=== PATIENT | female | born 1940 | race African-American/Black ===

== ENCOUNTER 2019-08-18 12:13 | Emergency (ER) | payer MEDICARE ==
[~2019-08-18] VITALS: Ht 165.1 cm; Wt 88.0 kg
[2019-08-18 12:52] LABS: HEMATOCRIT 35.5 % (37.0-47.0); HEMOGLOBIN 10.6 g/dl (12.0-16.0); IMMATURE GRANULOCYTES 0.4 % (0.0-5.0); MEAN CELL VOLUME 94.2 fL CALC (80.0-100.0); MEAN CORPUSCULAR HGB 28.1 pG CALC (26.0-32.0); MEAN CORPUSCULAR HGB CONC 29.9 g/L CALC (32.0-36.0); NEUT# 5.94 thou/uL (2.00-7.15); RED BLOOD COUNT 3.77 mill/uL (4.20-5.60)
[2019-08-18 13:08] LABS: ALBUMIN 3.7 g/dL (3.2-5.0); BILIRUBIN, TOTAL 0.9 mg/dL (0.0-1.4); CREATININE 3.2 mg/dL (0.5-1.0); POTASSIUM 4.5 mmol/l (3.5-5.1); TOTAL PROTEIN 7.6 g/dL (6.3-8.2)
[2019-08-18 15:25] VITALS: BP 147/81
== END 2019-08-18 15:25 ==
LOC: ED 12:13
PROVIDERS: Emergency Medicine
DX: J18.9 Pneumonia, unspecified organism (principal); N18.6 End stage renal disease; I12.0 Hypertensive chronic kidney disease with stage 5 chronic kidney disease or end stage renal disease; E87.70 Fluid overload, unspecified; E11.22 Type 2 diabetes mellitus with diabetic chronic kidney disease; Z99.2 Dependence on renal dialysis; Z91.15 Patient's noncompliance with renal dialysis; R06.02 Shortness of breath

== ENCOUNTER 2019-09-13 | Emergency (ER) | payer MEDICARE ==
[2019-09-13 03:41] LABS: HEMATOCRIT 34.7 % (37.0-47.0); HEMOGLOBIN 10.1 g/dl (12.0-16.0); IMMATURE GRANULOCYTES 0.7 % (0.0-5.0); MEAN CELL VOLUME 97.2 fL CALC (80.0-100.0); MEAN CORPUSCULAR HGB 28.3 pG CALC (26.0-32.0); MEAN CORPUSCULAR HGB CONC 29.1 g/L CALC (32.0-36.0); NEUT# 5.1 thou/uL (2.00-7.15); RED BLOOD COUNT 3.57 mill/uL (4.20-5.60); RED CELL DISTRI WIDTH 16.4 % (11.5-15.5)
[2019-09-13 04:09] LABS: ALBUMIN 3.8 g/dL (3.2-5.0); BILIRUBIN, TOTAL 0.7 mg/dL (0.0-1.4); POTASSIUM 4.4 mmol/l (3.5-5.1); TOTAL PROTEIN 7.5 g/dL (6.3-8.2)
[2019-09-13 04:10] LABS: CREATININE 5.3 mg/dL (0.5-1.0)
== END 2019-09-13 07:25 ==
PROVIDERS: Emergency Medicine
DX: J18.9 Pneumonia, unspecified organism (principal); E87.70 Fluid overload, unspecified; I12.0 Hypertensive chronic kidney disease with stage 5 chronic kidney disease or end stage renal disease; N18.6 End stage renal disease; Z99.2 Dependence on renal dialysis; R06.02 Shortness of breath

== ENCOUNTER 2019-09-21 | Emergency (ER) | payer MEDICARE, MEDICAID ==
[2019-09-21 13:19] LABS: HEMOGLOBIN 8.8 g/dl (12.0-16.0); IMMATURE GRANULOCYTES 2.3 % (0.0-5.0); MEAN CELL VOLUME 91.9 fL CALC (80.0-100.0); MEAN CORPUSCULAR HGB 28.7 pG CALC (26.0-32.0); MEAN CORPUSCULAR HGB CONC 31.2 g/L CALC (32.0-36.0); NEUT# 11.23 thou/uL (2.00-7.15); RED BLOOD COUNT 3.07 mill/uL (4.20-5.60)
[2019-09-21 13:24] LABS: HEMATOCRIT 28.2 % (37.0-47.0)
[2019-09-21 13:42] LABS: BILIRUBIN, TOTAL 0.6 mg/dL (0.0-1.4); CREATININE 4.4 mg/dL (0.5-1.0)
[2019-09-21 13:44] LABS: ALBUMIN 2.6 g/dL (3.2-5.0); POTASSIUM 3.5 mmol/l (3.5-5.1); TOTAL PROTEIN 5.4 g/dL (6.3-8.2)
== END 2019-09-21 14:45 ==
PROVIDERS: Family Medicine
PROC: 02HV33Z Insertion of Infusion Device into Superior Vena Cava, Percutaneous Approach (ICD-10-PCS; principal; 2019-09-21)
DX: J18.9 Pneumonia, unspecified organism (principal); I95.9 Hypotension, unspecified; E11.22 Type 2 diabetes mellitus with diabetic chronic kidney disease; I12.0 Hypertensive chronic kidney disease with stage 5 chronic kidney disease or end stage renal disease; N18.6 End stage renal disease; Z99.2 Dependence on renal dialysis

== ENCOUNTER 2019-12-08 | Emergency (ER) | payer MEDICARE, OTHER ==
[2019-12-08 12:45] LABS: HEMATOCRIT 40.6 % (37.0-47.0); HEMOGLOBIN 12.1 g/dl (12.0-16.0); IMMATURE GRANULOCYTES 1.2 % (0.0-5.0); MEAN CELL VOLUME 91.6 fL CALC (80.0-100.0); MEAN CORPUSCULAR HGB 27.3 pG CALC (26.0-32.0); MEAN CORPUSCULAR HGB CONC 29.8 g/dL CAL (32.0-36.0); NEUT# 2.45 thou/uL (2.00-7.15); RED BLOOD COUNT 4.43 mill/uL (4.20-5.60); RED CELL DISTRI WIDTH 16.5 % (11.5-15.5)
[2019-12-08 13:01] LABS: ACT PARTIAL THROMBO TIME 39.4 SECONDS (20.0-32.5); PROTHROMBIN TIME 10.8 SECONDS (9.0-12.5)
[2019-12-08] MEDS ORDERED: ALLOPURINOL100 MG PO (13:02)
[2019-12-08] MEDS ORDERED: LANTUS100 UNIT/M SC (13:03)
[2019-12-08] MEDS ORDERED: ELIQUIS5 MG PO (13:04)
[2019-12-08] MEDS ORDERED: LISINOPRIL5 MG PO (13:04)
[2019-12-08] MEDS ORDERED: LYRICA50 MG PO (13:05)
[2019-12-08] MEDS ORDERED: LIPITOR40 M1 PO (13:05)
[2019-12-08] MEDS ORDERED: ASPIRIN81 MG PO (13:05)
[2019-12-08] MEDS ORDERED: CARVEDILOL12.5 MG PO (13:06)
[2019-12-08] MEDS ORDERED: ZYRTEC10 M5 PO (13:07)
[2019-12-08 13:59] LABS: BILIRUBIN, TOTAL 0.8 mg/dL (0.0-1.4)
[2019-12-08 14:10] LABS: ALBUMIN 3.8 g/dL (3.2-5.0); CREATININE 5.3 mg/dL (0.5-1.0); POTASSIUM 5.3 mmol/l (3.5-5.1); TOTAL PROTEIN 7.2 g/dL (6.3-8.2)
== END 2019-12-08 18:22 ==
PROVIDERS: Emergency Medicine
DX: I48.91 Unspecified atrial fibrillation (principal); I13.2 Hypertensive heart and chronic kidney disease with heart failure and with stage 5 chronic kidney disease, or end stage renal disease; E11.22 Type 2 diabetes mellitus with diabetic chronic kidney disease; I50.9 Heart failure, unspecified; N18.6 End stage renal disease; Z99.2 Dependence on renal dialysis; Z79.4 Long term (current) use of insulin

== ENCOUNTER 2020-01-31 15:54 | Emergency (ER) | payer MEDICARE, OTHER ==
[~2020-01-31 15:54] MED LIST: ALLOPURINOL100 MG PO; ASPIRIN81 MG PO; CARVEDILOL12.5 MG PO; ELIQUIS5 MG PO; LANTUS100 UNIT/M SC; LIPITOR40 M1 PO; LISINOPRIL5 MG PO; LYRICA50 MG PO; ZYRTEC10 M5 PO
[2020-01-31 17:07] LABS: HEMATOCRIT 38.1 % (37.0-47.0); HEMOGLOBIN 11.8 g/dl (12.0-16.0); IMMATURE GRANULOCYTES 0.6 % (0.0-5.0); MEAN CELL VOLUME 88.4 fL CALC (80.0-100.0); MEAN CORPUSCULAR HGB 27.4 pG CALC (26.0-32.0); NEUT# 3.89 thou/uL (2.00-7.15); RED BLOOD COUNT 4.31 mill/uL (4.20-5.60); RED CELL DISTRI WIDTH 17.4 % (11.5-15.5)
[2020-01-31 17:27] LABS: ALBUMIN 3.4 g/dL (3.2-5.0); BILIRUBIN, TOTAL 1.1 mg/dL (0.0-1.4); TOTAL PROTEIN 6.5 g/dL (6.3-8.2)
[2020-01-31 17:34] LABS: CREATININE 3.3 mg/dL (0.5-1.0); POTASSIUM 3.7 mmol/l (3.5-5.1)
[2020-01-31 18:50] VITALS: BP 160/83
[2020-01-31] MEDS ORDERED: AMOXICILLIN875 MG PO (18:55)
[2020-01-31] MEDS ORDERED: ZPAK PO (18:55)
[2020-01-31] MEDS ORDERED: PREDNISONE10 MG PO ×2 (18:55)
[2020-01-31] MEDS ORDERED: ALBUTEROL SUL0.083 % IN ×2 (18:55)
== END 2020-01-31 18:50 | disposition left against medical advice (07) ==
LOC: ED 15:54
DX: I13.2 Hypertensive heart and chronic kidney disease with heart failure and with stage 5 chronic kidney disease, or end stage renal disease (principal); I50.9 Heart failure, unspecified; E11.22 Type 2 diabetes mellitus with diabetic chronic kidney disease; N18.6 End stage renal disease; J44.1 Chronic obstructive pulmonary disease with (acute) exacerbation; S00.12XA Contusion of left eyelid and periocular area, initial encounter; W19.XXXA Unspecified fall, initial encounter; Y92.009 Unspecified place in unspecified non-institutional (private) residence as the place of occurrence of the external cause; Z91.19 Patient's noncompliance with other medical treatment and regimen; Z79.4 Long term (current) use of insulin; Z99.2 Dependence on renal dialysis; Z20.828 Contact with and (suspected) exposure to other viral communicable diseases

== ENCOUNTER 2020-03-13 10:26 | Emergency (ER) | payer MEDICARE, OTHER ==
[~2020-03-13] VITALS: Ht 165.1 cm; Wt 100.0 kg
[~2020-03-13 10:26] MED LIST changes: +ALBUTEROL SUL0.083 % IN; +AMOXICILLIN875 MG PO; +PREDNISONE10 MG PO; +ZPAK PO
[2020-03-13 11:59] LABS: HEMATOCRIT 37.2 % (37.0-47.0); HEMOGLOBIN 11.4 g/dl (12.0-16.0); IMMATURE GRANULOCYTES 0.6 % (0.0-5.0); MEAN CELL VOLUME 91.9 fL CALC (80.0-100.0); MEAN CORPUSCULAR HGB 28.1 pG CALC (26.0-32.0); MEAN CORPUSCULAR HGB CONC 30.6 g/dL CAL (32.0-36.0); NEUT# 3.17 thou/uL (2.00-7.15); RED BLOOD COUNT 4.05 mill/uL (4.20-5.60); RED CELL DISTRI WIDTH 18.3 % (11.5-15.5)
[2020-03-13 12:13] LABS: TOTAL PROTEIN 7.3 g/dL (6.3-8.2)
[2020-03-13 12:14] LABS: ALBUMIN 4.3 g/dL (3.2-5.0)
[2020-03-13 12:15] LABS: CREATININE 8.6 mg/dL (0.5-1.0)
[2020-03-13] MEDS ORDERED: ELIQUIS2.5 MG PO (13:47)
[2020-03-13] MEDS ORDERED: ALLOPURINOL100 MG PO (13:48)
[2020-03-13] MEDS ORDERED: CETIRIZINE5 MG PO (13:49)
[2020-03-13] MEDS ORDERED: AMLODIPINE BES2.5 MG PO (13:49)
[2020-03-13] MEDS ORDERED: LANTUS SOL100 UNIT/M IJ (13:51)
[2020-03-13] MEDS ORDERED: ZESTRIL10 M1 PO (13:51)
[2020-03-13] MEDS ORDERED: GABAPENTIN300 M2 PO (13:59)
[2020-03-13 14:50] VITALS: BP 144/91
== END 2020-03-13 14:50 ==
LOC: ED 10:26
PROVIDERS: Family Medicine
DX: E87.70 Fluid overload, unspecified (principal); I12.0 Hypertensive chronic kidney disease with stage 5 chronic kidney disease or end stage renal disease; E11.22 Type 2 diabetes mellitus with diabetic chronic kidney disease; N18.6 End stage renal disease; Z99.2 Dependence on renal dialysis; Z91.15 Patient's noncompliance with renal dialysis; Z79.4 Long term (current) use of insulin; Z20.828 Contact with and (suspected) exposure to other viral communicable diseases; R06.02 Shortness of breath

== ENCOUNTER 2020-04-03 10:59 | Emergency (ER) | payer MEDICARE, OTHER ==
[~2020-04-03] VITALS: Ht 165.1 cm; Wt 90.0 kg
[~2020-04-03 10:59] MED LIST changes: +AMLODIPINE BES2.5 MG PO; +CETIRIZINE5 MG PO; +ELIQUIS2.5 MG PO; +GABAPENTIN300 M2 PO; +LANTUS SOL100 UNIT/M IJ; +ZESTRIL10 M1 PO
[2020-04-03 12:10] LABS: HEMATOCRIT 35.4 % (37.0-47.0); HEMOGLOBIN 10.8 g/dl (12.0-16.0); IMMATURE GRANULOCYTES 0.5 % (0.0-5.0); MEAN CELL VOLUME 95.4 fL CALC (80.0-100.0); MEAN CORPUSCULAR HGB 29.1 pG CALC (26.0-32.0); MEAN CORPUSCULAR HGB CONC 30.5 g/dL CAL (32.0-36.0); NEUT# 3.02 thou/uL (2.00-7.15); RED BLOOD COUNT 3.71 mill/uL (4.20-5.60); RED CELL DISTRI WIDTH 17.6 % (11.5-15.5)
[2020-04-03 12:28] LABS: ACT PARTIAL THROMBO TIME 31.4 SECONDS (20.0-32.5); INTERNATIONAL NORMALIZED RATIO 1.1 RATIO (0.7-1.3)
[2020-04-03 12:32] LABS: ALBUMIN 3.6 g/dL (3.2-5.0); TOTAL PROTEIN 6.3 g/dL (6.3-8.2)
[2020-04-03 12:38] LABS: POTASSIUM 5.8 mmol/l (3.5-5.1)
[2020-04-03 14:36] VITALS: BP 107/76
== END 2020-04-03 14:30 | disposition home or self-care (01) ==
LOC: ED 10:59
DX: R07.9 Chest pain, unspecified (principal); E87.5 Hyperkalemia; E87.1 Hypo-osmolality and hyponatremia; I12.0 Hypertensive chronic kidney disease with stage 5 chronic kidney disease or end stage renal disease; E11.22 Type 2 diabetes mellitus with diabetic chronic kidney disease; N18.6 End stage renal disease; Z99.2 Dependence on renal dialysis; Z79.4 Long term (current) use of insulin; Z20.828 Contact with and (suspected) exposure to other viral communicable diseases; R06.02 Shortness of breath

== ENCOUNTER 2020-04-17 05:59 | Emergency (ER) | payer MEDICARE, OTHER ==
[~2020-04-17] VITALS: Ht 160 cm; Wt 90.9 kg
[2020-04-17 07:12] LABS: HEMATOCRIT 35.6 % (37.0-47.0); HEMOGLOBIN 10.6 g/dl (12.0-16.0); IMMATURE GRANULOCYTES 0.5 % (0.0-5.0); MEAN CELL VOLUME 97.5 fL CALC (80.0-100.0); MEAN CORPUSCULAR HGB CONC 29.8 g/dL CAL (32.0-36.0); NEUT# 4.74 thou/uL (2.00-7.15); RED BLOOD COUNT 3.65 mill/uL (4.20-5.60)
[2020-04-17 08:44] LABS: ACT PARTIAL THROMBO TIME 30.8 SECONDS (20.0-32.5); INTERNATIONAL NORMALIZED RATIO 1.1 RATIO (0.7-1.3)
[2020-04-17 08:52] LABS: ALBUMIN 3.4 g/dL (3.2-5.0); BILIRUBIN, TOTAL 1.4 mg/dL (0.0-1.4); TOTAL PROTEIN 6.3 g/dL (6.3-8.2)
[2020-04-17 08:56] LABS: CREATININE 6.1 mg/dL (0.5-1.0); POTASSIUM 5.2 mmol/l (3.5-5.1)
[2020-04-17 09:45] VITALS: BP 129/67
== END 2020-04-17 09:45 | disposition home or self-care (01) ==
LOC: ED 05:59
PROVIDERS: Family Medicine
DX: B02.29 Other postherpetic nervous system involvement (principal); E11.22 Type 2 diabetes mellitus with diabetic chronic kidney disease; I12.0 Hypertensive chronic kidney disease with stage 5 chronic kidney disease or end stage renal disease; N18.6 End stage renal disease; I48.91 Unspecified atrial fibrillation; Z99.2 Dependence on renal dialysis; Z79.4 Long term (current) use of insulin; Z79.01 Long term (current) use of anticoagulants; Z20.828 Contact with and (suspected) exposure to other viral communicable diseases

== ENCOUNTER 2020-05-15 15:05 | Emergency (ER) | payer MEDICARE, OTHER ==
[~2020-05-15] VITALS: Ht 160 cm; Wt 86.6 kg
[2020-05-15 15:46] LABS: IMMATURE GRANULOCYTES 0.3 % (0.0-5.0); MEAN CELL VOLUME 97.1 fL CALC (80.0-100.0); MEAN CORPUSCULAR HGB 28.9 pG CALC (26.0-32.0); MEAN CORPUSCULAR HGB CONC 29.7 g/dL CAL (32.0-36.0); NEUT# 4.08 thou/uL (2.00-7.15); RED BLOOD COUNT 3.81 mill/uL (4.20-5.60)
[2020-05-15 16:01] LABS: ALBUMIN 3.7 g/dL (3.2-5.0); ANION GAP 15 (6-22 (CALC)); BILIRUBIN, TOTAL 1.5 mg/dL (0.0-1.4); BUN 28 mg/dL (8-23); CARBON DIOXIDE 26 mmol/l (22-30); CHLORIDE 96 mmol/l (95-108); POTASSIUM 4.8 mmol/l (3.5-5.1); SGOT/AST 27 u/l (9-36); SODIUM 132 mmol/l (137-146); TOTAL PROTEIN 6.9 g/dL (6.3-8.2)
[2020-05-15] MEDS ORDERED: CARVEDILOL6.25 MG PO (16:15)
[2020-05-15 16:21] LABS: ALKALINE PHOSPHATASE 105 u/l (38-126); BUN/CREATININE RATIO 4 (12-20 (CALC)); CREATININE 6.3 mg/dL (0.5-1.0); GFR 6 ML/MIN (>=60 (CALC)); GFR FOR AFR.AMER. 8 ML/MIN (>=60 (CALC))
[2020-05-15 17:51] VITALS: BP 106/66
== END 2020-05-15 17:35 ==
LOC: ED 15:05
PROVIDERS: Family Medicine
DX: R07.9 Chest pain, unspecified (principal); E11.22 Type 2 diabetes mellitus with diabetic chronic kidney disease; I12.0 Hypertensive chronic kidney disease with stage 5 chronic kidney disease or end stage renal disease; N18.6 End stage renal disease; I48.91 Unspecified atrial fibrillation; Z99.2 Dependence on renal dialysis; Z79.4 Long term (current) use of insulin; Z20.828 Contact with and (suspected) exposure to other viral communicable diseases